=== PATIENT | female | born 1980 | race Caucasian/White ===

== ENCOUNTER 2021-03-12 09:29 | Outpatient (CLI) | payer BC, SELFPAY ==
--- NOTE | 2021-03-12 09:46 | ECHO_ITS ---
Patient Info Name: Lashanda Manzanares Age: 40 years : 1980 Gender: Female Ht: 69 in Wt: 385 lbs BSA: 3.02 m2 HR: 72 bpm BP: 149 / 83 mmHg Heart Rhythm: Sinus Rhythm Technical Quality: Fair Exam Date: 03/12/2021 10:31 AM Exam Location: [facility], [facility] Pulmonary Patient Status: Outpatient Admit Date: 03/12/2021 Staff Ordering Physician: Eren Rudolph MD Front Desk: Sivan Helm RDCS Attending Provider: Eren Rudolph MD Referring Physician: Klaudia MASTERS; Exam Type: CA echo doppler color flow Study Info Indications R01.1 - Cardiac murmur, unspecified Complete two-dimensional, color flow and Doppler transthoracic echocardiogram is performed. Summary 1. Complete two-dimensional, color flow and Doppler transthoracic echocardiogram is performed. 2. Left ventricular chamber dimension is normal. 3. Left ventricular systolic function is normal, estimated at 60-65%. 4. There is mildly increased left ventricular wall thickness. 5. The left ventricular diastolic function is normal. 6. There is mild tricuspid valve regurgitation. Left Ventricle Left ventricular chamber dimension is normal. Left ventricular systolic function is normal, estimated at 60-65%. There is mildly increased left ventricular wall thickness. The left ventricular diastolic function is normal. Right Ventricle Right ventricular chamber dimension is normal. Right ventricular systolic function is normal. Left Atria Left atrial chamber dimension is normal. Right Atria Right atrial chamber dimension is normal. Atrial Septum Intact interatrial septum visualized by color flow imaging. Aortic Valve The aortic valve is trileaflet. There is mild aortic valve sclerosis. There is no aortic valve stenosis. There is trace aortic valve regurgitation. Pulmonic Valve The pulmonic valve is normal. There is no pulmonic valve stenosis. There is trace pulmonic regurgitation. Mitral Valve The mitral valve has normal leaflets. There is no mitral valve stenosis. There is trace mitral valve regurgitation. Tricuspid Valve The tricuspid valve leaflets are normal. There is no significant tricuspid valve stenosis. There is mild tricuspid valve regurgitation. Pericardium/Pleural The pericardium appears normal. There is no pericardial effusion. Inferior Vena Cava Normal inferior vena cava with >50% collapse upon inspiration consistent with normal right atrial pressure, 10 mmHg. Aorta The aortic root size at the sinus of Valsalva is normal. The prox ascending aorta size is normal. Left Ventricular Outflow Tract Name Value Normal LVOT 2D LVOT Diameter 2.1 cm LVOT Doppler LVOT Peak Gradient 7 mmHg LVOT Mean Gradient 4 mmHg LVOT VTI 29 cm LVOT VTI/AV VTI Ratio 1.1 LVOT Stroke Volume 96 ml LVOT CO 17.9 l/min LVOT CI 5.9 l/min/m2 Pulmonic Valve
== END 2021-03-12 09:30 | disposition home or self-care (01) ==
PROVIDERS: PCP Family Medicine; Visit Provider Family Medicine
DX: R01.1 Cardiac murmur, unspecified (principal); I36.1 Nonrheumatic tricuspid (valve) insufficiency
CPT/HCPCS: 93306

== ENCOUNTER → 2021-04-15 06:43 | Outpatient (CLI) | payer BC, SELFPAY ==
[2021-04-16 17:40] LABS: SARS-CoV-2 RNA PCR Negative
== END ==
PROVIDERS: PCP Family Medicine; Visit Provider Family Medicine
DX: Z20.822 Contact with and (suspected) exposure to COVID-19 (principal); R09.89 Other specified symptoms and signs involving the circulatory and respiratory systems
CPT/HCPCS: C9803; U0003; U0005

== ENCOUNTER 2021-05-13 09:09 | Outpatient (CLI) | payer BC, SELFPAY ==
--- NOTE | 2021-05-13 12:00 | NEURO_ITS ---
Impression: # Complains of hand numbness. # Early evolving bilateral Carpal Tunnel Syndrome, right more than left. # No ulnar neuropathy. # Normal needle/EMG exam. Nerve Conduction Studies Anti Sensory Summary Table Stim Site NR Peak (ms) P-T Amp (?V) Site1 Site2 Delta-P (ms) Dist (cm) Kaden (m/s) Left Median Anti Sensory (2-3nd Digit) Wrist 3.7 61.5 Wrist 2-3nd Digit 3.7 14.0 38 Wrist 3.8 49.2 Wrist 2-3nd Digit 3.7 14.0 38 Right Median Anti Sensory (2-3nd Digit) Wrist 3.5 44.1 Wrist 2-3nd Digit 3.5 14.0 40 Wrist 3.7 39.8 Wrist 2-3nd Digit 3.5 14.0 40 Left Radial Anti Sensory (Base 1st Digit) Wrist 1.9 23.9 Wrist Base 1st Digit 1.9 0.0 Right Radial Anti Sensory (Base 1st Digit) Wrist 1.8 14.9 Wrist Base 1st Digit 1.8 0.0 Left Ulnar Anti Sensory (5th Digit) Wrist 2.2 48.6 Wrist 5th Digit 2.2 14.0 64 Right Ulnar Anti Sensory (5th Digit) Wrist 2.0 49.5 Wrist 5th Digit 2.0 14.0 70 Motor Summary Table Stim Site NR Onset (ms) O-P Amp (mV) Site1 Site2 Delta-0 (ms) Dist (cm) Kaden (m/s) Left Median Motor (Abd Poll Brev) Wrist 3.0 8.3 Elbow Wrist 5.5 30.0 55 Elbow 8.5 4.1 Right Median Motor (Abd Poll Brev) Wrist 3.4 3.3 Elbow Wrist 5.0 29.0 58 Elbow 8.4 2.5 Left Ulnar Motor (Abd Dig Minimi) Wrist 2.5 7.4 A Elbow Wrist 5.3 30.0 57 A Elbow 7.8 4.6 Right Ulnar Motor (Abd Dig Minimi) Wrist 2.4 5.8 A Elbow Wrist 4.9 29.0 59 A Elbow 7.3 4.1 F Wave Studies NR F-Lat (ms) L-R F-Lat (ms) Left Median (Mrkrs) (Abd Poll Brev) 28.17 0.47 Right Median (Mrkrs) (Abd Poll Brev) 28.64 0.47 Left Ulnar (Mrkrs) (Abd Dig Min) 27.78 1.05 Right Ulnar (Mrkrs) (Abd Dig Min) 28.83 1.05 EMG Side Muscle Nerve Root Ins Act Fibs Amp Dur Recrt Comment Right 1stDorInt Ulnar C8-T1 Nml Nml Nml Nml Nml Right Ext Indicis Radial (Post Int) C7-8 Nml Nml Nml Nml Nml Right Ext Digitorum Radial (Post Int) C7-8 Nml Nml Nml Nml Nml Right BrachioRad Radial C5-6 Nml Nml Nml Nml Nml Right PronatorTeres Median C6-7 Nml Nml Nml Nml Nml Right Abd Poll Brev Median C8-T1 Nml Nml Nml Nml Nml Left 1stDorInt Ulnar C8-T1 Nml Nml Nml Nml Nml Left Ext Indicis Radial (Post Int) C7-8 Nml Nml Nml Nml Nml Left Ext Digitorum Radial (Post Int) C7-8 Nml Nml Nml Nml Nml Left BrachioRad Radial C5-6 Nml Nml Nml Nml Nml Left PronatorTeres Median C6-7 Nml Nml Nml Nml Nml Left Abd Poll Brev Median C8-T1 Nml Nml Nml Nml Nml MTDD
== END 2021-05-13 09:10 | disposition home or self-care (01) ==
PROVIDERS: PCP Family Medicine; Visit Provider Family Medicine
DX: G56.03 Carpal tunnel syndrome, bilateral upper limbs (principal)
CPT/HCPCS: 95886; 95911

== ENCOUNTER 2021-08-05 01:41 | Day surgery (SDC) | payer BC, SELFPAY ==
[2021-07-31 13:04] VITALS: BMI 56.8
--- NOTE | 2021-08-05 07:25 | WPDHPUPDATE1 ---
History and Physical Update Update Date/Time: 08/05/21 07:25 History and Physical has been reviewed, including an updated exam of the patient. There are NO changes in the patient's condition. Risks, benefits, and alternatives have been discussed and questions answered. Patient agrees to proceed with procedure.
[2021-08-05] MEDS: LACTATED RINGERS 1,000 ML 30 ML IV CONT (07:45)
[2021-08-05 07:53] VITALS: BP 148/90; PULSE 92; RESP 20; TEMP 36.4; O2SAT 98
[2021-08-05 08:13] LABS: Hematocrit 34.4 % (37.0-47.0)
--- NOTE | 2021-08-05 08:42 | WPDANESEPPF ---
Anes - Initial Pre Proc Eval Procedure: Operation Date: 08/05/21 09:00 Proposed Procedures p Bilateral Open Carpal Tunnel Release - Hossein Becker MD Date/Time: 08/05/21 08:42 Surgeon: Hossein Becker MD Pre Op Diagnosis: bilat carpal tunnel syndrome Patient Data Age: 40 Gender: F Height: 1.75 m Weight: 172 kg Last Vital Signs Temp 97.6 F 08/05/21 07:53 Pulse 92 08/05/21 07:53 Resp 20 08/05/21 07:53 BP 148/90 H 08/05/21 07:53 Pulse Ox 98 08/05/21 07:53 Allergies Allergy/AdvReac Type Severity Reaction Status Date / Time clindamycin AdvReac Mild Rash Verified 08/05/21 07:33 Sulfa (Sulfonamide AdvReac Mild Rash Verified 08/05/21 07:33 Antibiotics) sulfite AdvReac Mild Rash Verified 08/05/21 07:33 Home Medications Medication Instructions Recorded Confirmed Type levonorgestrel 20 mcg/24 hours (6 1 device I-UTERINE ONCE 10/22/19 07/31/21 History yrs) 52 mg intrauterine device lysine 500 mg tablet 500 mg PO BID 10/22/19 08/05/21 History meclizine 25 mg tablet 25 mg PO PRN PRN 10/22/19 07/31/21 History melatonin 10 mg tablet,extended 10 mg PO HS tablet 10/22/19 08/05/21 History release sumatriptan succinate 50 mg tablet 50 mg PO PRN PRN tablet 10/22/19 07/31/21 History bupropion HCl 300 mg 24 hr tablet, 300 mg PO QAM #90 tablet 12/15/20 08/05/21 Rx extended release pantoprazole 40 mg tablet,delayed 40 mg PO QAM #90 tablet 03/09/21 08/05/21 Rx release methylphenidate HCl 36 mg 72 mg PO QAM #60 tablet 07/22/21 08/05/21 Rx tablet,extended release 24 hr ascorbic acid (vitamin C) 500 mg PO BID 07/31/21 08/05/21 History bupropion HCl 150 mg PO DAILY 07/31/21 08/05/21 History ferrous sulfate 325 mg PO BID 07/31/21 08/05/21 History fluoxetine 40 mg PO QAM 07/31/21 08/05/21 History Laboratory Tests 08/05/21 07:44 Hgb 11.0 g/dL L g/dL (12.0-15.0) Hct 34.4 % L % (37.0-47.0) Patient hx anesthesia problems: none Family hx anesthesia problems: none [facility] Past Medical History Medical History (Updated 04/01/21 @ 13:58 by Eren Rudolph MD) Anemia Morbid obesity with BMI of 50.0-59.9, adult Surgical History Surgical History History of adenoidectomy History of tonsillectomy Hx of appendectomy (~05/23/18) Family History Family History Father Diabetes mellitus Mother Depression Hypertension Grandparent Diabetes mellitus Family history of glaucoma Hypertension Family history of elevated blood lipids Family history of lung cancer Social History Social History (Updated 04/01/21 @ 13:36 by Belinda Spence [facility]) Smoking status: Never smoker Alcohol intake: current Drinks per week: 1 Living arrangements: with family Spiritual care concerns: No Anes - Eval Final PreProcedure Day of Procedure 08/05/21 08:42 Patient weight: super morbidly obese Heart: regular rate and rhythm Lungs: clear to auscultation Airway: Mallampati scale class II Neurological: alert and oriented Last oral intake: >/= 8 hours ASA classification: IV Emergent: no Anesthetic plan: proceed Anesthesia type and monitoring: general GIVS and LMA and standard monitoring Informed Consent: The patient's anesthetic plan and its attendant risks and benefits were discussed with the patient/family/POA. Questions were solicited and answers provided to the satisfaction of the patient/family/POA.
[2021-08-05] MEDS: LIDO 1%/EPINEPHRINE 1:100,000 50 ML VIAL INFILTRATE (09:24)
[2021-08-05 09:45] VITALS: BP 155/68; PULSE 91; RESP 12; O2SAT 99
--- NOTE | 2021-08-05 09:53 | P.OP_ITS ---
Procedure Note - Detailed Date of Procedure 08/05/21 Pre-op Diagnosis bilat carpal tunnel syndrome Post-op Diagnosis same Procedure Performed Bilateral open carpal tunnel release Surgeon Hossein Becker MD Anesthesia MAC Description of Procedure The 2 extremities were marked at the volar wrist in the holding area. She was taken to the operating room and placed supine on the operating table. A time- out was held and confirmed. He was given IV sedation. Two IVs were in the forearms. We elected to anesthetize each wrist prior to the prep. This allowed extended dwell time for hemostasis. The extremities were prepped and draped on separate hand warts. The sites were marked for incision. The tourniquet was not utilized on either side. On the right side incision was made as marked and dissection was carried bluntly through the subcutaneous tissue to the palmar aponeurosis. This and the transverse carpal ligament were incised with a 15. Blade. Three point retraction the ligament was divided distally and proximally for complete release of the carpal ligament. No unusual anatomy was noted. The skin wound was closed with interrupted 5 0 nylon suture in a small bandage with Ike wrap supple. Attention was turned to the left side. The incision was made again as marked without use of tourniquet. The dissection was carried bluntly through the subcutaneous tissue to the palmar aponeurosis. This is the carpal ligament were incised with a 15. Blade. Under 3 point retraction the ligament was divided distally and proximally to completely release it. No unusual anatomy was noted. The wound was closed with interrupted 5 0 nylon. The usual bandage was applied. The patient was discharged from the operating room in stable condition. She has a prescription for hydrocodone 5/325 number 10. Estimated Blood Loss 2 Tourniquet Time 0 Drains No Packing No Pathology none sent Complications No immediate complications Condition stable Disposition same day
[2021-08-05 10:00] VITALS: BP 163/88; PULSE 80; RESP 16; O2SAT 95
[2021-08-05 10:30] VITALS: BP 163/88; PULSE 80; RESP 16; TEMP 36.4; O2SAT 95
[2021-08-05 10:40] VITALS: BP 163/88; PULSE 80; RESP 16; TEMP 36.4; O2SAT 95
--- NOTE | 2021-08-05 11:39 | SUR.PHASEII ---
per pt she spoke with Dr. Cote and requested a different pain medication due to hydrocodone not working in the past. DR. Cote said he placed a different prescription to her pharmacy. This nurse spoke with pt at [phone] at 11:30am and informed of the change and to give the pharmacy some time to make the change are fill the medication.
== END 2021-08-05 10:43 | disposition home or self-care (01) ==
PROVIDERS: Anesthesiology; PCP Family Medicine; Visit Provider Plastic Surgery
PROC: (CPT 64721; principal; 2021-08-05 09:00)
DX: G56.03 Carpal tunnel syndrome, bilateral upper limbs (principal); D64.9 Anemia, unspecified; E66.01 Morbid (severe) obesity due to excess calories; Z68.43 Body mass index [BMI] 50.0-59.9, adult
CPT/HCPCS: 64721; 36415; 85014; 85018; A9270; J2250; J2704; J3010; J7120

== ENCOUNTER 2022-05-24 09:38 | Emergency (ER) | payer OTHER, BC, SELFPAY ==
--- NOTE | ~2022-05-24 | XR_ITS ---
XR shoulder LT min 2V DATE: 05/24/2022 10:00 INDICATION: Left shoulder pain with movement TECHNIQUE: 4 views COMPARISON: None FINDINGS: There is minimal soft tissue calcification at the posterior lateral aspect of the left zion ral head which may be due to calcific tendinitis. No fracture, dislocation, periosteal reaction or bone destruction is noted otherwise. Normal alignmen t at the acromioclavicular and glenohumeral joints. IMPRESSION: Minimal soft tissue calcification adjacent to posterolateral aspect of humeral head, poss ibly due to mild calcific tendinitis; otherwise negative Reviewed, dictated and finalized at location A. IMPRESSION: Minimal soft tissue calcification adjacent to posterolateral aspect of humeral head, possibly due to mild calcific tendinitis; otherwise negative
[2022-05-24 09:41] VITALS: BP 155/96; PULSE 90; RESP 18; TEMP 36.8; O2SAT 100
--- NOTE | 2022-05-24 11:19 | ED.GENADULT ---
HPI - General Adult General Chief complaint: Extremity Injury, Upper Stated complaint: shoulder pain Time Seen by Provider: 05/24/22 10:56 History of Present Illness HPI narrative: Patient is a 41-year-old female here for evaluation of left shoulder pain for the past 2 weeks. Patient states that the pain is most notable at nighttime when she is lying on the right shoulder and her left shoulder moves superiorly. States that she is unable to lie on the left shoulder due to pain. Denies relief after ibuprofen and Tylenol at home. Denies numbness, tingling, weakness, fevers, chills, rash. Related Data Home Medications Medication Instructions Recorded Confirmed levonorgestrel 20 mcg/24 hours (7 1 device intrauterine ONCE 10/22/19 07/31/21 yrs) 52 mg intrauterine device (Mirena) lysine 500 mg tablet (L-Lysine) 500 mg PO BID 10/22/19 08/05/21 meclizine 25 mg tablet 25 mg PO PRN PRN Vertigo 10/22/19 07/31/21 melatonin 10 mg tablet,extended 10 mg PO HS 10/22/19 08/05/21 release sumatriptan succinate 50 mg tablet 50 mg PO PRN PRN Migraine Headache 10/22/19 07/31/21 ascorbic acid (vitamin C) 500 mg 500 mg PO BID 07/31/21 08/05/21 capsule ferrous sulfate 325 mg (65 mg 325 mg PO BID 07/31/21 08/05/21 iron) tablet glucosamine HCl 1,500 mg tablet 1,500 mg PO DAILY 12/30/21 omega 1-[id number]-fish oil 1,200 mg 1 cap PO 12/30/21 (144 mg-216 mg) capsule (Fish Oil) Allergies Allergy/AdvReac Type Severity Reaction Status Date / Time clindamycin AdvReac Mild Rash Verified 12/30/21 09:43 Sulfa (Sulfonamide AdvReac Mild Rash Verified 12/30/21 09:43 Antibiotics) sulfite AdvReac Mild Rash Verified 12/30/21 09:43 Review of Systems Review of Systems: Gen.: Denies fevers or chills Eyes: Denies eye pain or visual change ENT: Denies congestion Respiratory: Denies shortness of breath or cough CV: Denies chest pain or palpitations GI: Denies abdominal pain nausea, emesis or diarrhea denies burning, urgency, frequency or hematuria Musculoskeletal: Reports left shoulder pain. Denies back pain or muscle pain Neuro: Denies numbness, tingling, weakness or focal weakness Skin: Denies rash Except as documented, all other systems reviewed and negative [facility] Past Medical History Medical History Anemia Morbid obesity with BMI of 50.0-59.9, adult Surgical History Surgical History History of adenoidectomy History of carpal tunnel release of both wrists History of foot surgery (~2006) left History of tonsillectomy (~1991) Hx of appendectomy (~05/23/18) Family History Family History Father Diabetes mellitus Mother Depression Hypertension Grandparent Hypertension Sleep apnea Gout Rheumatoid arthritis Grandparent , age 56 Lung cancer Social History Social History Alcohol intake: current Drinks per week: 1 Spiritual care concerns: No Exam Narrative: APPEARANCE: No acute distress, nontoxic, resting in bed EYES: EOMI HEENT: Normocephalic, atraumatic, OMM RESPIRATORY: No respiratory distress Clear to auscultation bilaterally with no rhonchi wheezing or rales. CARDIOVASCULAR: 2+ radial pulses bilaterally. Regular rate and rhythm without murmurs rubs or gallops. ABDOMINAL: Soft, nontender, nondistended, no rebound or guarding MUSCULOSKELETAL: Left shoulder without gross deformity. No bony tenderness palpation of clavicle, humerus, forearm, hand or fingers. Full range of motion in arm. Mcdaniel, empty can, liftoff test negative. Tung test negative. Pain elicited when shoulder is extended. Spurling's test negative. NEURO: Sensation intact over entirety of left upper extremity. Awake and alert. Following commands, speech normal, no focal deficits SKIN: Warm, dry. No r
== END 2022-05-24 11:50 | disposition home or self-care (01) ==
PROVIDERS: Emergency Provider Emergency Medicine; PCP Family Medicine
DX: M75.32 Calcific tendinitis of left shoulder (principal)
CPT/HCPCS: 73030; 99283

== ENCOUNTER 2024-04-14 08:19 | Emergency (ER) | payer OTHER, SELFPAY ==
--- NOTE | ~2024-04-14 | XR_ITS ---
EXAMINATION: XR shoulder RT min 2V DATE: 04/14/2024 08:58 INDICATION: Right shoulder pain. TECHNIQUE: 2 views of right shoulder were obtained. COMPARISON: None. FINDINGS: Bone alignment is normal. No fracture. Glenohumeral joint is normal. There is mild acromioc lavicular joint osteoarthritis. IMPRESSION: 1. Mild right acromioclavicular joint osteoarthritis. Reviewed, dictated and finalized at location A.
[2024-04-14 08:26] VITALS: BP 126/74; PULSE 62; RESP 16; TEMP 36.6; O2SAT 100
--- NOTE | 2024-04-14 08:43 | ED.GENADULT ---
HPI - General Adult General Chief complaint: Extremity Injury, Upper Stated complaint: Rt Shoulder Pain Time Seen by Provider: 04/14/24 08:43 Source: patient, RN notes reviewed and old records reviewed Mode of arrival: ambulatory Limitations: no limitations History of Present Illness HPI narrative: 43-year-old female to [facility] for complaint of right shoulder pain with onset upon awakening yesterday. Patient reports that she lifts heavy weights regularly and did squatted goblet swings the night prior. Patient believes pain may have resulted from this exercise. Patient reports decreased stave bolt equalizer strength in right hand and decreased stregth in right arm. Patient is able to slowly perform full ROM of right shoulder in all directions however reports pain 8/10 at anterior right shoulder with lateral raise. Patient denies tingling or numbness in RUE. Related Data Home Medications Medication Instructions Recorded Confirmed levonorgestrel 21 mcg/24 hr (up to 1 device intrauterine ONCE 10/22/19 04/14/24 8 years) 52 mg intrauterine device (Mirena) ascorbic acid (vitamin C) 500 mg 500 mg PO BID 07/31/21 04/14/24 capsule Allergies Allergy/AdvReac Type Severity Reaction Status Date / Time bupropion AdvReac Intermediate apathy Verified 04/14/24 08:35 clindamycin AdvReac Mild Rash Verified 04/14/24 08:35 Sulfa (Sulfonamide AdvReac Mild Rash Verified 04/14/24 08:35 Antibiotics) sulfite AdvReac Mild Rash Verified 04/14/24 08:35 Review of Systems Review of Systems: All systems reviewed & are unremarkable except as noted in HPI and below Constitutional: Constitutional: Reports no additional constitutional complaints Eyes: Eyes: Reports no additional eye complaints ENT: Reports system reviewed and no additional complaints, except as documented Cardiovascular: Cardiovascular: Reports no additional cardiovascular complaints, Denies chest pain and Denies dyspnea Respiratory: Respiratory: Reports no additional respiratory complaints, Denies cough and Denies dyspnea Musculoskeletal: Musculoskeletal: Reports as per HPI, Denies deformity, Reports arthralgias ( right shoulder), Denies joint swelling, Reports muscle weakness, Denies numbness, Denies radiating pain into limb, Denies stiffness and Denies tingling Neurologic: Reports system reviewed and no additional complaints, except as documented Psychiatric: Psychiatric: Reports no additional psychiatric complaints PMFSH Past Medical History Medical History Anemia Morbid obesity with BMI of 50.0-59.9, adult Surgical History Surgical History H/O gastric sleeve History of adenoidectomy History of carpal tunnel release of both wrists History of foot surgery (~2006) left History of tonsillectomy (~1991) Hx of appendectomy (~05/23/18) Family History Family History Father Diabetes mellitus Mother Depression Hypertension Grandparent Hypertension Sleep apnea Gout Rheumatoid arthritis Grandparent , age 56 Lung cancer Social History Social History Smoking status: Never smoker Alcohol intake: current Drinks per week: 1 Lack of Transportation: No Lack of Food: Never True Current Housing: I Have Housing Concerned About Future Housing: No Difficulty Paying Gas/Electric Bills: No Difficulty Paying for Meds: No Currently Unemployed: No Education: Master's Degree or Higher Difficulty w/ Childcare or Family Care: No Living arrangements: with family Spiritual care concerns: No Comments At the time of my signature, I reviewed and agree with the nursing past medical, surgical, social, and family history. There is no relevant family history pertinent to the patient complaint. Exam Co
== END 2024-04-14 09:27 | disposition home or self-care (01) ==
PROVIDERS: Emergency Provider Nurse Practitioner Family; PCP Family Medicine
DX: M19.011 Primary osteoarthritis, right shoulder (principal); E66.01 Morbid (severe) obesity due to excess calories; Z68.29 Body mass index [BMI] 29.0-29.9, adult; Z98.84 Bariatric surgery status
CPT/HCPCS: 73030; 99213; G0463